=== PATIENT | female | born 1940 | race Caucasian/White ===

== ENCOUNTER 2018-11-12 15:43 | Inpatient (IN) | payer BC, MEDICARE, OTHER ==
[~2018-11-12] VITALS: Ht 167.6 cm; Wt 92.1 kg
--- NOTE | 2018-11-12 15:49 | NUR ---
[id number] FOR L HIP,L ELBOW AND L SHOULDER PAIN S/P MISSED A STEP AND FELL NO HEAD TRAUMA, NO KO. AOX4, AMB WITH ASSISTANCE, HYPERTENSIVE, RR EVEN AND UNLABORED ON RA. SKIN INTACT, NO ACUTE DISTRESS NOTED. DENIES DIZZINESS, WEAKNESS. AT BEDSIDE. READY FOR EVAL.
--- NOTE | 2018-11-12 16:30 | NUR ---
PT TAKEN TO CT VIA [facility]
--- NOTE | 2018-11-12 16:43 | NUR ---
PT BACK FROM CT. RACIEL WELL. WILL CONT TO MONITOR
[2018-11-12 17:33] LABS: BASOPHILS % (AUTO) 0.5 % (0.0-2.0); EOSINOPHILS % (AUTO) 2.4 % (0.0-6.0); HEMATOCRIT 37 % (33-45); HEMOGLOBIN 12.4 g/dL (11.5-14.8); LYMPHOCYTES # (AUTO) 1.3 /CMM (0.8-4.8); LYMPHOCYTES % (AUTO) 13.9 % (20.0-44.0); MEAN CORPUSCULAR HGB CONC 34 g/dl (31.0-36.0); MEAN CORPUSCULAR VOLUME 93 fL (82-100); MONOCYTES # (AUTO) 0.5 /CMM (0.1-1.30); MONOCYTES % (AUTO) 5.4 % (2.0-12.0); NEUTROPHILS # (AUTO) 7.1 /CMM (1.8-8.9); NEUTROPHILS % (AUTO) 77.8 % (43.0-81.0); PLATELET COUNT (AUTO) 230 /CMM (150-450); RED BLOOD CELL COUNT(AUTO) 3.94 MIL/uL (4.0-5.2); WHITE BLOOD COUNT (AUTO) 9.1 K/uL (4.3-11.0)
[2018-11-12 17:41] LABS: CARBON DIOXIDE 27 mmol/L (21-32); CHLORIDE 104 mmol/L (98-107); CREATININE 1.1 mg/dL (0.6-1.3); GLUCOSE 121 mg/dL (74-106); POTASSIUM 4.4 mmol/L (3.5-5.1); SODIUM SERUM 135 mmol/L (136-145); UREA NITROGEN, BLOOD 22 mg/dL (7-18)
--- NOTE | 2018-11-12 17:45 | NUR ---
INSERTED ANGEL PER MD ORDER. PT TOLERATED WELL.
[2018-11-12] MEDS ORDERED: ACETAMINOPHEN ES 500 MG TABLET ONE (18:51)
--- NOTE | 2018-11-12 18:52 | NUR ---
CALLED DR OGLESBY, CONNECTED CALL TO DR WILKINSON FOR DOCTOR TO DOCTOR
--- NOTE | 2018-11-12 18:52 | NUR ---
CALLED NURSING DEPARTMENT ADMINISTRATOR FOR M/S BED
[2018-11-12] MEDS ORDERED: ACETAMINOPHEN ES 500 MG TABLET PO ONE (19:00)
--- NOTE | 2018-11-12 19:58 | NUR ---
REPORT GIVEN TO JANET FOR 119-1 MS
--- NOTE | 2018-11-12 20:08 | NUR ---
[facility]
[2018-11-12 20:26] VITALS: BP 156/78
[2018-11-12] MEDS ORDERED: METF-440 PO (20:48)
[2018-11-12] MEDS ORDERED: ATOR20TA PO (20:48)
[2018-11-12] MEDS ORDERED: METO50TA16 PO (20:48)
[2018-11-12] MEDS ORDERED: IRBE150T28 PO (20:48)
[2018-11-12] MEDS ORDERED: MECL12.582 PO (20:48)
[2018-11-12] MEDS ORDERED: HYDROMORPHONE 1 MG/1 ML DISP.SYRIN IV PRN (21:00)
[2018-11-12] MEDS ORDERED: ZOLPIDEM TARTRATE 5 MG TABLET PO PRN (21:00)
[2018-11-12] MEDS ORDERED: ACETAMINOPHEN 325 MG TABLET PO PRN (21:00)
[2018-11-12] MEDS ORDERED: ONDANSETRON HCL/PF 4 MG/2 ML VIAL IV PRN (21:00)
[2018-11-12] MEDS: METFORMIN 500 MG TABLET PO SCH (22:01)
[2018-11-12] MEDS: METOPROLOL TARTRATE 50 MG TABLET PO SCH (22:01)
[2018-11-12] MEDS: ENOXAPARIN SODIUM 40 MG/0.4 ML DISP.SYRIN SQ SCH (22:03)
[2018-11-12] MEDS: HYDROCODONE/APAP 5/325MG 1 EACH TABLET PO PRN (23:09)
[2018-11-13] VITALS (7 sets, daily range): BP systolic 120–148; BP diastolic 66–92
[2018-11-13] MEDS ORDERED: *INSULIN REGULAR(HUMULIN R)HUM 100 UNIT/ML VIAL SQ PRN (00:30)
[2018-11-13] MEDS ORDERED: DEXTROSE 50%-WATER 50 ML DISP.SYRIN IV PRN (00:30)
[2018-11-13] MEDS: IV 1/2NS 1000 ML 1,000 ML IV PRN ×2 (03:41→21:05)
[2018-11-13] MEDS: ACETAMINOPHEN 325 MG TABLET PO PRN ×2 (03:56→23:26)
[2018-11-13 06:39] LABS: APPEARANCE,URINE CLEAR (CLEAR); BILIRUBIN,URINE NEGATIVE (NEGATIVE); BLOOD, URINE NEGATIVE Ery/uL (NEGATIVE); COLOR,URINE YELLOW (YELLOW); KETONES,URINE NEGATIVE (NEGATIVE); LEUKOCYTE ESTERASE ,URINE NEGATIVE (NEGATIVE); NITRITE, URINE NEGATIVE (NEGATIVE); PROTEIN,URINE NEGATIVE (NEGATIVE); UGLUCOSE NEGATIVE (NEGATIVE); UROBILINOGEN,URINE 0.2 EU/dL (0.2)
[2018-11-13 07:15] LABS: BASOPHILS % (AUTO) 0.4 % (0.0-2.0); EOSINOPHILS % (AUTO) 2.4 % (0.0-6.0); HEMATOCRIT 34 % (33-45); HEMOGLOBIN 11.5 g/dL (11.5-14.8); LYMPHOCYTES # (AUTO) 1.3 /CMM (0.8-4.8); LYMPHOCYTES % (AUTO) 17.5 % (20.0-44.0); MEAN CORPUSCULAR HGB CONC 34 g/dl (31.0-36.0); MEAN CORPUSCULAR VOLUME 92 fL (82-100); MONOCYTES # (AUTO) 0.5 /CMM (0.1-1.30); MONOCYTES % (AUTO) 7.1 % (2.0-12.0); NEUTROPHILS # (AUTO) 5.3 /CMM (1.8-8.9); NEUTROPHILS % (AUTO) 72.6 % (43.0-81.0); PLATELET COUNT (AUTO) 192 /CMM (150-450); RED BLOOD CELL COUNT(AUTO) 3.64 MIL/uL (4.0-5.2); WHITE BLOOD COUNT (AUTO) 7.2 K/uL (4.3-11.0)
[2018-11-13 07:24] LABS: CALCIUM, SERUM 9.3 mg/dL (8.5-10.1); CARBON DIOXIDE 23 mmol/L (21-32); CHLORIDE 107 mmol/L (98-107); CREATININE 0.8 mg/dL (0.6-1.3); GLUCOSE 150 mg/dL (74-106); POTASSIUM 4.2 mmol/L (3.5-5.1); SODIUM SERUM 142 mmol/L (136-145); UREA NITROGEN, BLOOD 18 mg/dL (7-18)
--- NOTE | 2018-11-13 07:30 | NUR ---
RN AM SHIFT NOTE PATIENT IN BED ALERT AND ORIENTD, IV PATENT AND INTACT. PATIENT BED IN LOW POSITION. PAIN MANAGED WITH TYLENOL. PATIENT STATES SHE IS COMFORTABLE. REMAINS NPO AWAITING PROCEDURES FORM MD. HOLD BLOOD THINNERS DUE TO POSSIBLE SURGERY. CALL LIGHT WITHIN REACH. CONTINUE TO MONITOR.
[2018-11-13] MEDS: BLOOD SUGAR DIAGNOSTIC 1 EACH STRIP VI SCH ×4 (07:51→21:11)
[2018-11-13] MEDS: MECLIZINE HCL 12.5 MG TABLET PO SCH ×3 (08:18→17:00)
[2018-11-13] MEDS: METFORMIN 500 MG TABLET PO SCH ×3 (08:18→17:13)
[2018-11-13] MEDS: METOPROLOL TARTRATE 50 MG TABLET PO SCH ×2 (08:19→21:05)
[2018-11-13] MEDS: INSULIN REGULAR, HUMAN 100 UNIT/ML 3 ML VIAL SQ PRN (08:26)
[2018-11-13] MEDS: LOSARTAN POTASSIUM 25 MG TABLET PO SCH (08:43)
[2018-11-13] MEDS ORDERED: IRBESARTAN (150MG) 150 MG TABLET PO SCH (09:00)
[2018-11-13] MEDS: ATORVASTATIN 10 MG TABLET PO SCH (09:19)
--- NOTE | 2018-11-13 13:48 | NUR ---
RN NOTE SURGEON SAW THE PATIENT TODAY 1350. ORDER TO NOT ADMINISTER LOVENOX THIS EVENING AND NPO TONIGHT AT MIDNIGHT. ENDORSE TO NIGHT NURSE
[2018-11-13] MEDS: HYDROCODONE/APAP 5/325MG 1 EACH TABLET PO PRN (14:41)
--- NOTE | 2018-11-13 19:49 | NUR ---
RN CLOSING NOTE PATIENT AWAKE AND ALERT, IN BED. INFORMED OF HER PROCEDURE TOMORROW. SURGEON EXPAINED PROCEDURE TO THE PATIENT. NPO AFTER MIDNIGHT, HOLD BLOOD THINNERS PER MD CHAVEZ ORDER. NIGHT NURSE AWARE.
--- NOTE | 2018-11-13 20:07 | NUR ---
FRONT END MECHANIC NOTES RECEIVED PT ON BED. ON ROOM AIR NO RESPIRATORY DISTRESS NOTED. ON TELE MONITOR SR 76. IV ACCESS RAC G 20 WITH 1/2 NS PATENT AND INTACT. ANGEL CATH DRAINING YELLOW URINE. HEAD OF BED ELEVATED. SIDE RAILS UP. CALL LIGHT WITHIN REACH. BED ALARM ON. WILL CONTINUE TO MONITOR PT CLOSELY.
[2018-11-13] MEDS: ENOXAPARIN SODIUM 40 MG/0.4 ML DISP.SYRIN SQ SCH (21:00)
--- NOTE | 2018-11-13 21:11 | NUR ---
LEASES AND LAND SUPERVISOR NOTES RUBY HERNÁNDEZ, PT FOR HIP SURGERY.
[2018-11-14] VITALS: BP 147/77
[2018-11-14 04:00] VITALS: BP 138/75
[2018-11-14] MEDS ORDERED: ANESTHESIA TRAY IN PYXIS 1 EA TRAY MC ONE (06:44)
[2018-11-14] MEDS ORDERED: BACITRACIN 50000 UNITS/VIAL ONE (06:45)
[2018-11-14] MEDS ORDERED: BUPIVACAINE 0.5 % PF 150 MG/30 ML VIAL ONE (06:45)
--- NOTE | 2018-11-14 07:15 | NUR ---
ONLINE ADVERTISING MANAGER OPENING NOTES RECEIVED REPORT FROM PM SHIFT; PT READY FOR ORIF AT 0730. PER PM NURSE, CONSENT SIGNED/TYPE AND SCREEN ORDERED, CHECKLIST IN CHART. PT HAS BEEN NPO SINCE MIDNIGHT, PT A/OX3. ON RA. NO S/SX OF DISTRESS NOTED. OR NURSE AT BEDSIDE READY TO TRANSPORT PT TO OR. WILL CONT TO MONITOR.
--- NOTE | 2018-11-14 07:17 | NUR ---
MAINTENANCE APPRENTICE NOTES NO ACUTE CHANGES NOTED DURING THE SHIFT. PT KEPT NPO. PRE OP CHECKLIST DONE. PROVIDED COMFORT AND SAFETY. WILL ENDORSE TO THE AM NURSE FOR CONTINUITY OF CARE.
[2018-11-14] MEDS ORDERED: MIDAZOLAM HCL 2 MG/2ML VIAL ONE (07:29)
[2018-11-14] MEDS ORDERED: FENTANYL PF 100MCG/2ML AMPUL ONE ×2 (07:29→08:38)
[2018-11-14] MEDS: BLOOD SUGAR DIAGNOSTIC 1 EACH STRIP VI SCH ×4 (07:30→21:41)
--- NOTE | 2018-11-14 07:35 | NUR ---
FAN MAIL EDITOR NOTES PT TRANSPORTED IN BED TO OR. WILL RESUME CARE UPON ARRIVAL.
[2018-11-14] MEDS ORDERED: HYDROMORPHONE 1 MG/1 ML DISP.SYRIN ONE (09:54)
[2018-11-14 10:30] VITALS: BP 148/74
--- NOTE | 2018-11-14 10:30 | NUR ---
BRAIDED RUG MAKER NOTES ANTONY VU REPORTED FOR JEREMY. PER RN, ANCEF 2G GIVEN IN OR. DILAUDID GIVEN AT 1005. PT A/OX3. NO C/O PAIN. DR OGLESBY AT BEDSIDE, OK TO RESUME LOVENOX, PT EVAL, DIET TOLERATED. WEIGHT BEARING TOLERATED. VS TAKEN. ATTEMPTED TO CONTACT -UNSUCCESSFUL. WILL TRY AGAIN. WILL CONT TO MONITOR PT.
--- NOTE | 2018-11-14 11:10 | NUR ---
DIRECT SUPPORT SPECIALIST NOTES ENDORSED CARE TO ANTONY FABIAN
[2018-11-14] MEDS: MECLIZINE HCL 12.5 MG TABLET PO SCH ×3 (11:48→17:05)
[2018-11-14] MEDS: METFORMIN 500 MG TABLET PO SCH ×3 (11:48→17:05)
[2018-11-14] MEDS: LOSARTAN POTASSIUM 25 MG TABLET PO SCH (11:48)
[2018-11-14] MEDS: METOPROLOL TARTRATE 50 MG TABLET PO SCH ×2 (11:49→21:26)
[2018-11-14] MEDS: ATORVASTATIN 10 MG TABLET PO SCH (11:53)
[2018-11-14 12:00] VITALS: BP 129/66
[2018-11-14] MEDS ORDERED: MORPHINE SULFATE INJ 4 MG/ML DISP.SYRIN IV PRN (12:00)
[2018-11-14] MEDS ORDERED: TRAMADOL HCL 50 MG TABLET PO PRN (12:00)
--- NOTE | 2018-11-14 13:00 | NUR ---
RN NOTE METFORMIN AND MECLIZINE HELD AT THIS TIME BECAUSE MORNING DOSE WAS ADMINISTERED AROUND 1200. WILL ADMINISTER NEXT DOSE.
[2018-11-14] MEDS: CEFAZOLIN 2 GM in IV D5W 50 ML IV SCH ×2 (15:36→23:13)
[2018-11-14] MEDS: ACETAMINOPHEN 325 MG TABLET PO SCH ×3 (15:37→23:14)
[2018-11-14 16:00] VITALS: BP 145/72
[2018-11-14] MEDS: INSULIN REGULAR, HUMAN 100 UNIT/ML 3 ML VIAL SQ PRN (17:17)
[2018-11-14 20:00] VITALS: BP 128/70
--- NOTE | 2018-11-14 20:19 | NUR ---
MS HARDY NOTES RECEIVED PATIENT AWAKE IN BED WITH NO DISTRESS NOTED. CALL LIGHT WITHIN REACH. NO C/O PAIN OR DISCOMFORT. BED IN LOW LOCK SETTING. ROOM FREE OF CLUTTER AND BELONGINGS KEPT NEAR BEDSIDE. WILL CONTINUE TO MONITOR. Addendum: 11/15/18 at 0005 by ANNA SANTANA RN CHAVEZ HARDY NOTES
[2018-11-14] MEDS: ENOXAPARIN SODIUM 40 MG/0.4 ML DISP.SYRIN SQ SCH (21:28)
[2018-11-14] MEDS: IV 1/2NS 1000 ML 1,000 ML IV PRN (21:41)
[2018-11-15] VITALS: BP 133/67
[2018-11-15 04:00] VITALS: BP_SYST 133; BP_SYST 142; BP_DIAS 69; BP_DIAS 87
[2018-11-15] MEDS: ACETAMINOPHEN 325 MG TABLET PO SCH ×2 (06:12→11:11)
[2018-11-15] MEDS: BLOOD SUGAR DIAGNOSTIC 1 EACH STRIP VI SCH ×2 (06:30→11:51)
--- NOTE | 2018-11-15 06:49 | NUR ---
DUTY ENGINEER NOTES PATIENT ASLEEP IN BED WITH NO DISTRESS NOTED. CALL LIGHT WITHIN REACH. NO PAIN OR DISCOMFORT. ALL DUE MEDS GIVEN ORDERED WITH NO ASE NOTED. PERIPHERAL LINE INTACT AND PATENT. FC INTACT, PATENT, AND DRAINED 1400ML CLEAR YELLOW URINE DURING SHIFT. BED IN LOW LOCK SETTING. ALL BELONGINGS KEPT NEAR BEDSIDE. ROOM FREE OF CLUTTER. WILL ENDORSE TO ONCOMING SHIFT.
[2018-11-15 06:58] LABS: CALCIUM, SERUM 8.9 mg/dL (8.5-10.1); CARBON DIOXIDE 25 mmol/L (21-32); CHLORIDE 108 mmol/L (98-107); GLUCOSE 122 mg/dL (74-106); POTASSIUM 4.8 mmol/L (3.5-5.1); SODIUM SERUM 141 mmol/L (136-145); UREA NITROGEN, BLOOD 15 mg/dL (7-18)
[2018-11-15 07:01] LABS: BASOPHILS % (AUTO) 0.8 % (0.0-2.0); EOSINOPHILS % (AUTO) 3.8 % (0.0-6.0); HEMATOCRIT 29 % (33-45); HEMOGLOBIN 10.1 g/dL (11.5-14.8); LYMPHOCYTES # (AUTO) 1.4 /CMM (0.8-4.8); LYMPHOCYTES % (AUTO) 23.2 % (20.0-44.0); MEAN CORPUSCULAR HGB CONC 35 g/dl (31.0-36.0); MEAN CORPUSCULAR VOLUME 93 fL (82-100); MONOCYTES # (AUTO) 0.5 /CMM (0.1-1.30); NEUTROPHILS # (AUTO) 3.7 /CMM (1.8-8.9); NEUTROPHILS % (AUTO) 63.2 % (43.0-81.0); PLATELET COUNT (AUTO) 150 /CMM (150-450); RED BLOOD CELL COUNT(AUTO) 3.14 MIL/uL (4.0-5.2); WHITE BLOOD COUNT (AUTO) 5.9 K/uL (4.3-11.0)
--- NOTE | 2018-11-15 07:53 | NUR ---
MEAT TEAM MEMBER OPENING NOTES PATIENT RECEIVED ASLEEP IN BED AWAKE. A/O X 4, NO S/S OF DISTRESS NOTED NO PAIN OR DISCOMFORT. NO SOB. RAC IV INTACT AND PATENT. FC INTACT, PATENT, AND DRAINING CLEAR YELLOW URINE. BED IN LOW LOCK SETTING, CALL LIGHT WITHIN REACH, SAFETY MEASURES IN PLACE. WILL CONTINUE TO MONITOR.
[2018-11-15 08:00] VITALS: BP 133/72
[2018-11-15] MEDS ORDERED: HYDR-4384 PO (08:18)
[2018-11-15] MEDS: METFORMIN 500 MG TABLET PO SCH ×2 (08:24→12:56)
[2018-11-15] MEDS: METOPROLOL TARTRATE 50 MG TABLET PO SCH (08:31)
[2018-11-15] MEDS: MECLIZINE HCL 12.5 MG TABLET PO SCH ×2 (08:31→12:56)
[2018-11-15] MEDS: ATORVASTATIN 10 MG TABLET PO SCH (08:32)
[2018-11-15] MEDS: LOSARTAN POTASSIUM 25 MG TABLET PO SCH (08:32)
[2018-11-15] MEDS: CALCIUM CARB 600MG /VIT D 1 EACH TABLET PO SCH ×2 (08:48→12:56)
[2018-11-15 12:00] VITALS: BP_SYST 114; BP_SYST 84; BP_DIAS 53; BP_DIAS 70
--- NOTE | 2018-11-15 12:08 | NUR ---
HUMAN RESOURCES PARTNER NOTE MD BEDSIDE ORDERED ANGEL CATHETER REMOVAL.
--- NOTE | 2018-11-15 13:25 | NUR ---
GENETICS NURSE NOTES ANGEL CATHTER REMOVED BY RN. PATIENT URINATED CLEAR YELLOW, 20 ML, 30 MINUTES AFTER REMOVAL. NO C/O PAIN IN ABDOMEN OR ELSEWHERE.
--- NOTE | 2018-11-15 16:07 | NUR ---
ASSET ADMINISTRATORWEIGHER BULKER NOTE PATIENT DISCHARGED VIA [facility] 11/15/18 @ 0486. NO SOB, CP OR OTHER S/S OF DISTRESS. RAC IV REMOVED, TELE MONITOR REMOVED, DISCHARGE PAPERWORK COMPLETE AND SENT WITH TRANSPORTATION COMPANY.
[2018-11-15] MEDS ORDERED: RIVAROXABAN 10 MG TABLET PO SCH (17:00)
== END 2018-11-15 16:00 | DRG 482 ==
LOC: ER 15:45 → MEDSG1 19:53 → TELE1 11-13 00:24
PROVIDERS: ADMIT Internal Medicine; ATTEND Internal Medicine
PROC: 0QS704Z Reposition Left Upper Femur with Internal Fixation Device, Open Approach (ICD-10-PCS; principal; 2018-11-14)
DX: S72.012A Unspecified intracapsular fracture of left femur, initial encounter for closed fracture (principal); W01.0XXA Fall on same level from slipping, tripping and stumbling without subsequent striking against object, initial encounter; Y92.009 Unspecified place in unspecified non-institutional (private) residence as the place of occurrence of the external cause; I10 Essential (primary) hypertension; E78.5 Hyperlipidemia, unspecified; E11.9 Type 2 diabetes mellitus without complications; Z90.710 Acquired absence of both cervix and uterus; Z79.84 Long term (current) use of oral hypoglycemic drugs; F41.0 Panic disorder [episodic paroxysmal anxiety]; Z88.2 Allergy status to sulfonamides; Z79.899 Other long term (current) drug therapy; I48.0 Paroxysmal atrial fibrillation
CPT/HCPCS: 36415; 71045-TC; 72050-TC; 72192-TC; 73030-TC; 73080-TC; 73502; 80048-TC; 81000-TC; 82962-TC; 85025-TC; 85730-TC; 87081-TC; 93307-TC; A6209; A6402; C1713; G0378; J0690; J1170; J1650; J1815; J1885; J2250; J2405; J2704; J3010; J3490; J7060; J8597